=== PATIENT | male | born 1970 | race Caucasian/White ===

== ENCOUNTER 2017-06-20 08:32 | Inpatient (IN) | payer BC, OTHER ==
[~2017-06-20] VITALS: Ht 167.6 cm; Wt 106.6 kg
--- NOTE | 2017-06-20 11:25 | NUR ---
PRE ASSESSMENT: PT IN INTAKE A/O X 4. GIT STEADY. HE IS WEARING A L FOOT BOOT AND HE REPORTS HE STRETCHED LIGAMENTS. HE REPORTS HE IS IN WITHDRAWAL HE USES PAIN PILLS AND HAS NOT USED SINCE 9PM LAST NIGHT. HE REPORTS USING 80- MG PO DAILY FOR THE LAST 4 DAYS AND PRIOR TO THAT 360 MG OF OXYCODONE DAILY AND MORPHINE SULFATE 40 MG PO DAILY X 9 YEARS. HE STATES HE RAN OUT OF MORPHINE AND OXYCODONE ON FRIDAY AND HAS BEEN ON NORCO FOR THE LAST 4 DAYS. HE DENIES SZ HISTORY AND DENIES ALLERGIES. HE REPORTS DJD,CHRONIC BACK PAIN AND HTN. WILL ASSESS PT ON UNIT.
--- NOTE | 2017-06-20 12:00 | NUR ---
ADMISSION: A 46 Y.O MALE A/O X 4 ADMITTED FOR MEDICALLY SUPERVISED WITHDRAWAL OF OPIATES. HE REPORTS TAKING 360 MG PO OF OXYCODONE AND 80 MG PO OF MORPHINE SULFATE DAILY IN THIS PATTERN FOR 2-3 YEARS WITH A 9 YR HISTORY. HE RAN OUT LAST FRIDAY AND HAS BEEN TAKING NORCO 80MG PO DAILY FOR THE LAST 4 DAYS. HE REPORTS DIARRHEA,CHILLS,SWEATS,RESTLESS LEGS,ANXIETY AND RESTLESSNESS COWS 14. HE REPORTS A MEDICAL HX. OF HTN;CHRONIC BACK PAIN AND DJD. HE STATES IS COMPLIANT WITH THE ANTIHYPERTENSIVES THAT HE BROUGHT FROM HOME. HE HAS A L FOOT BOOT.DAIJA ALEXANDER IN [facility] IS HIS PCP.THERE IS 1 + NON PITTING EDEMA NOTED TO L FOOT FOR STRETCHED LIGAMENTS.. HE STATES HE USED HEROIN AND METH IV YEARS AGO BUT QUIT IN 2000 FOR 10 YRS. HE HAD MENISCUS SURGERY 9 YEARS AGO AND STARTED USING THE PAIN PILLS THEN. HE DENIES SEIZURE HX AND ALLERGIES. PT IS GUARDED WITH A DEPRESSED MOOD. HE DENIES S/I AND H/I. PT IS COOPERATIVE. ASSESSED PT AND ORDERED SUBUTEX 4MG SL AT 1230 AND 1400 TO ASSIST IN MANAGING S/S OF W/D. WILL ADMINISTER ORDERED. ORIENTED PT TO STAFF AND UNIT. WILL CONTINUE TO PROVIDE SAFE AND SUPPORTIVE ENVIRONMENT.
[2017-06-20] MEDS ORDERED: ATOR20TA PO (12:16)
[2017-06-20] MEDS ORDERED: VALS1TAB6 PO (12:16)
[2017-06-20] MEDS ORDERED: AMLO10TA4 PO (12:16)
[2017-06-20] MEDS ORDERED: ATEN50TA PO (12:16)
[2017-06-20] MEDS ORDERED: CALC215T PO (12:16)
[2017-06-20 12:43] LABS: BASOPHILS % (AUTO) 0.2 % (0.0-2.0); EOSINOPHILS % (AUTO) 0.1 % (0.0-7.0); HEMOGLOBIN 16.5 g/dL (12.5-16.3); LYMPHOCYTES # (AUTO) 1.1 K/uL (20.0-40.0); LYMPHOCYTES % (AUTO) 10.2 % (20.5-51.5); MEAN CORPUSCULAR HEMOGLOBIN 27.2 uug (23.8-33.4); MEAN CORPUSCULAR HGB CONC 34 g/dL (32.5-36.3); MEAN CORPUSCULAR VOLUME 79.4 fL (73.0-96.2); MONOCYTES # (AUTO) 0.5 K/uL (2.0-10.0); MONOCYTES % (AUTO) 4.7 % (0.0-11.0); NEUTROPHILS # (AUTO) 8.9 K/uL (1.8-8.9); NEUTROPHILS % (AUTO) 84.8 % (38.5-71.5); PLATELET COUNT (AUTO) 388 K/uL (152-348); RED BLOOD CELL COUNT(AUTO) 6.05 MIL/uL (4.06-5.63); WHITE BLOOD COUNT (AUTO) 10.5 K/uL (3.6-10.2)
[2017-06-20 12:53] LABS: ALANINE AMINOTRANSFERASE 26 U/L (16-63); ALKALINE PHOSPHATASE 120 U/L (50-136); ASPARTATE AMINOTRANSFERASE 14 U/L (15-37); BILIRUBIN,TOTAL 0.4 mg/dL (0.2-1.0); CARBON DIOXIDE 32 mmol/L (21-32); CHLORIDE 101 mmol/L (98-107); GLUCOSE 119 mg/dL (74-106); POTASSIUM 3.8 mmol/L (3.5-5.1); TOTAL PROTEIN, SERUM 8.8 g/dL (6.4-8.2); UREA NITROGEN, BLOOD 14 mg/dL (7-18)
[2017-06-20 13:00] LABS: ETHANOL < 3 MG/DL (0-0)
[2017-06-20 13:20] LABS: *AMPHETAMINE, URINE NEGATIVE (NEGATIVE); *BARBITURATE, URINE NEGATIVE (NEGATIVE); *CANNABINOID, URINE NEGATIVE (NEGATIVE); *COCCAINE, URINE NEGATIVE (NEGATIVE); *OPIATE, URINE POSITIVE (NEGATIVE); *PHENCYCLIDINE SCREEN,URINE NEGATIVE (NEGATIVE)
[2017-06-20 16:00] VITALS: BP 90/60
--- NOTE | 2017-06-20 16:30 | NUR ---
PRN MOTRIN 600 MG PO GIVEN FOR REPORTED H/A 04/07 WILL MONITOR EFFECTIVENESS OF PRN.
--- NOTE | 2017-06-20 17:30 | NUR ---
PT REPORTS H/A 11/08 HE STATES THE PRN MOTRIN WAS EFFECTIVE.
--- NOTE | 2017-06-20 18:46 | NUR ---
END OF SHIFT: 46 YO MALE NEWLY ADMITTED FOR OPIATE DEPENDENCE. LAST COWS 10. SUBUTEX TAPER IN PROGRESS TO MANAGE S/S OF W/D. HE STATES THE SUBUTEX IS EFFECTIVE. MOTRIN PRN GIVEN FOR REPORTED H/A AND WAS EFFECTIVE. WILL PASS SHIFT REPORT TO ONCOMING NIGHT NURSE.
--- NOTE | 2017-06-20 19:20 | NUR ---
Start of Shift Patient Received. Patient is in bed, awake, alert and verbally responsive. Breathing even and non labored. No signs of pain or discomfort noted. Patient is a 46 year old male admitted on 06/20/17 for Opiate Dependence under the care of Dr. Sepulveda. Patient is currently receiving a 5 day Subutex taper. Patient verbalizes no known allergies, wishes to be full code, following a regular diet, placed on fall precautions. Skin noted intact. Past medical history noted as HTN, DJD, Chronic back pain, Left foot boot due to right stretched ligaments. Per endorsement, patient was started on Subutex taper medication. Last noted CIWA 10. All needs attended to promptly. Will continue plan of care as ordered.
[2017-06-20 20:31] VITALS: BP 137/92
--- NOTE | 2017-06-20 20:46 | NUR ---
PRN Medication Administration Patient verbalizing increased muscle spasms and increased agitation. COWS 9 and CIWA 10. PRN Ativan 2mg and PRN Robaxin administered as per order. Will continue to monitor.
--- NOTE | 2017-06-20 21:45 | NUR ---
PRN Medication Reassessment Patient is noted in bed, awake, and watching TV. patient is able to verbalize medication was effective in minimizing agitation and muscle spasms. PRN Robaxin and PRN Ativan noted to be effective. All needs attended to promptly. Will continue to monitor.
[2017-06-21] VITALS: BP 124/83
[2017-06-21 04:45] VITALS: BP 120/69
[2017-06-21 06:08] LABS: HEPATITIS B SURFACE AG Negative (Negative)
--- NOTE | 2017-06-21 07:33 | NUR ---
End of Shift Patient is in bed sleeping. Breathing even and non labored. No signs of pain or discomfort noted. Patient is a 46 year old male admitted on 06/20/17 for Opiate Dependence under the care of Dr. Sepulveda and is currently receiving a 5 day Subutex taper. No known allergies, Full code, Regular diet, placed on fall precautions. Skin noted intact. Patient was given PRN Robaxin and Ativan 2mg for increased agitation with medication noted to be effective. Last noted COWS 9. All needs attended to promptly. Will endorse to continue plan of care as ordered.
--- NOTE | 2017-06-21 07:52 | NUR ---
BEGINNING OF SHIFT Patient is a 46 year old male, with admitting Dx: OPIATE Dependence. Patient with past medical history of: HTN, DJD, chronic back pain, history of right knee meniscus surgery, stretched ligaments. Patient received PRN: Robaxin and ativan during tonsorial artist, medication was effective. Patient skin is intact. Per tonsorial artist patient slept for 7 hours, Patient with last cow score of: 9. Patient is scheduled to begin day 2 of 5 day subutex during shift. Patient received in bed awake, alert and oriented x4, educated patient regarding plan of care for the day and medication regimen with good verbal understanding. Safety measures in place. call light kept with in reach, will continue to monitor closely.
[2017-06-21 08:23] VITALS: BP 132/68
--- NOTE | 2017-06-21 09:45 | NUR ---
PRN MOTRIN/ROBAXIN patient c/o generalized body pain 7/10 and muscle aches 7/10, provided with non pharmacological interventions with no relief, administered Motrin and Robaxin as ordered by PO. will monitor effectiveness of medications. safety measures in place. call light kept with in reach.
--- NOTE | 2017-06-21 10:45 | NUR ---
MOTRIN/ROBAXIN REASSESSMENT Patient reports medications effective, reports current pain level is 2/10, tolerable as per patient.
[2017-06-21 13:42] VITALS: BP 146/95
--- NOTE | 2017-06-21 14:33 | NUR ---
PRN TORADOL Patient c/o back pain and left leg pain 8/10, provided with non pharmacological interventions with no relief, patient administered Toradol injection as ordered, injection well tolerated. will monitor effectiveness of medication.
--- NOTE | 2017-06-21 15:33 | NUR ---
TORADOL REASSESSMENT Patient reports medication effective, current pain level 2/10, tolerable as per patient, will continue to monitor.
[2017-06-21 17:23] VITALS: BP 137/80
--- NOTE | 2017-06-21 19:03 | NUR ---
END OF SHIFT Patient alert and oriented x4, patient compliant with therapeutic plan of care. Vital signs were stable during shift. Patient continues on 5 day Subutex taper as ordered and is currently on day 2 of taper, well tolerated, no ASE noted. 0900 assessment presented with: restlessness, c/o chills, mild bone and joint aches, dilated pupils, runny nose, tremors that can be felt but not seen, dilated pupils, runny nose, tremors that can be felt but not seen and mild anxiety with cow score of: 6; 1700 assessment patient presented with: heart rate of 87, c/o chills, dilated pupils, mild bone and joint aches, moist eyes, and mild anxiety with cow score of: 6. Detox medication effective at reducing withdrawal symptom. Patient received PRN Toradol injection, Motrin PO and Robaxin PO as ordered, medications were effective. Patient was encouraged to increase PO fluid intake as tolerated. Patient denies SI/HI. Encouraged to attend group therapies/sessions to learn new coping skills to prevent relapse, MD is aware of patients current status, continues under close observation. Patient endorsed to dairy management specialist nurse, all pertinent information discussed.
--- NOTE | 2017-06-21 19:20 | NUR ---
Start of Shift Patient Received. Patient is in activities room participating in group meeting. Patient is a 46 year old male admitted on 06/20/17 for Opiate Dependence under the care of Dr. Sepulveda and is currently receiving a 5 day Subutex taper. No known allergies, Full code, Regular diet, placed on fall precautions. Skin noted intact. Per endorsement, Patient was given PRN Robaxin, Motrin, and Toradol with medications noted to be effective. Last noted COWS 6. All needs attended to promptly. Will continue plan of care as ordered.
[2017-06-21 21:08] VITALS: BP 145/78
--- NOTE | 2017-06-21 21:15 | NUR ---
PRN Medication Administration Patient verbalizing generalized pain of 8/10 and inability of falling asleep. PRN Toradol and Benadryl administered as per orders. Will continue to monitor.
--- NOTE | 2017-06-21 22:00 | NUR ---
PRN Medication Reassessment Patient was given PRN Toradol for generalized pain and Benadryl for inability of falling asleep. Patient is noted in bed reading a book. Patient is able to verbalizing new tolerable pain level of 4/10. Patient also noted to verbalized "The Benadryl really helped. Im slowly making my way to sleep." PRN medications noted to be effective. Will continue to monitor.
[2017-06-22] VITALS: BP 126/71
--- NOTE | 2017-06-22 | NUR ---
COWS/VS VS REFUSED. COWS ASSESSMENT DEFERRED. RESPIRATION EVEN AND UNLABORED. RR 14. SAFETY MEASURES IN PLACE. CALL LIGHT IN REACH. WILL CONTINUE TO MONITOR. Addendum: 06/23/17 at 0626 by RUBÉN BENAVIDES LVN ERROR IN CHARTING
[2017-06-22 04:20] VITALS: BP 129/73
--- NOTE | 2017-06-22 07:04 | NUR ---
End of Shift Patient is in bed sleeping. Breathing even and non labored. No signs of pain or discomfort noted. Patient is a 46 year old male admitted on 06/20/17 for Opiate Dependence under the care of Dr. Sepulveda and is currently receiving a 5 day Subutex taper. No known allergies, Full code, Regular diet, placed on fall precautions. Skin noted intact. Patient was given PRN Toradol and Benadryl with both medications noted to be effective. Patient slept a total of 6 hours. Last noted COWS 9. All needs attended to promptly. Will endorse to continue plan of care as ordered.
--- NOTE | 2017-06-22 07:30 | NUR ---
Start of shift note; Received report from night nurse. Patient is a 46 year old male admitted on 06/20/17 for Opiate dependence. Patient reported history of hypertension. chronic back pain, history of right knee meniscus surgery. Patient was placed on a 5 day Subutex taper. Patient slept for 6 hours. Patient is on fall and seizure precautions. Bed in lowest position, call light within reach. Will continue to monitor patient.
[2017-06-22 08:00] VITALS: BP 118/88
--- NOTE | 2017-06-22 10:30 | NUR ---
PRN medication; Patient reported right hip/lower back pain rated 9/10. PRN Toradol 30mg IM administered for severe pain. Will continue to monitor patient for effectiveness of medication.
--- NOTE | 2017-06-22 11:00 | NUR ---
PRN medication; Patient requested for Nicotine gum for nicotine craving, given as per Ordered. Addendum: 06/22/17 at 1540 by ROSA COSTELLO LVN Educated patient regarding the importance of not smoking when requesting nicotine gum to prevent nicotine toxicity, patient verbalized understanding.
--- NOTE | 2017-06-22 11:30 | NUR ---
Re-assessment; Patient decrease of pain from 9/10 to 4/10 rated per pain scale, PRN medication is effective.
[2017-06-22 12:00] VITALS: BP 119/78
[2017-06-22 16:00] VITALS: BP 114/61
--- NOTE | 2017-06-22 18:19 | NUR ---
PRN medication; Patient is complaining of heartburn. PRN Maalox given to patient as per MD order. Will continue to monitor for effectiveness of medication.
--- NOTE | 2017-06-22 18:27 | NUR ---
End of shift note; Patient is AOX4. Patient is a 46 year old male admitted on 06/20/17 for Opiate dependence. Patient reported history of hypertension. chronic back pain, history of right knee meniscus surgery. Patient was placed on a 5 day Subutex taper. Patient remained compliant with treatment plan and medication regime. Medications were effective in reducing withdrawal symptoms. Patient participated in group activities and therapies. Met all needs.
--- NOTE | 2017-06-22 19:20 | NUR ---
START OF SHIFT NOTE RECEIVED REPORT FROM DAY SHIFT NURSE. PATIENT IS A 27 YEAR OLD FEMALE ADMITTED FOR OPIATE,BENZO AND METH DEPENDENCE. PATIENT IS ON 1:1 FOR SAFETY AND SEIZURE PRECAUTION. PATIENT IS ALLERGIC TO KEPPRA/LEVETIRACETAM AND BACLOFEN. PATIENT IS ON PHENOBARBITAL TAPER AND SUBUTEX TAPER. PER DAY SHIFT NURSE, PATIENT STILL CONTINUES TO VERBALIZES THAT IF SHE DOES NOT GET MEDICATION THAT SHE FEELS LIKE SEIZURES COMING ON. PATIENT'S CARCAMO WAS REMOVED AND SHE WAS GIVEN PRN CLONIDINE. LAST COWS 7 AND CIWA 6. PATIENT DID NOT HAVE EPISODE OF SEIZURE DURING THE DAY. RECEIVED PATIENT IS IN HER ROOM WITH 1:1. PER PATIENT SHE'S UNABLE TO URINATE. PATIENT NOTED ANXIOUS, AGITATED, RESTLESS, UNSTEADY GAIT, NO N/V, SPEECH IS SLURRED. REDIRECTION PROVIDED. SAFETY MEASURES IN PLACE. CALL LIGHT IN REACH. WILL CONTINUE TO MONITOR. Addendum: 06/23/17 at 0105 by RUBÉN BENAVIDES LVN ERROR: THIS CHARTING IS FOR ANOTHER PATIENT
[2017-06-22 20:00] VITALS: BP 117/71
--- NOTE | 2017-06-22 20:00 | NUR ---
START OF SHIFT NOTE RECEIVED REPORT FROM DAY SHIFT NURSE. PATIENT IS A 46 YEAR OLD MALE ADMITTED FOR OPIATE DEPENDENCE. PATIENT IS ON 5 DAYS SUBUTEX TAPER. PATIENT WAS GIVEN PRN TORADOL IM , MYLANTA AND NICOTINE GUM. PATIENT COMPLIANT WITH MEDICATIONS AND TREATMENT PLAN . LAST COWS 4. REPORTS NO SEIZURE HISTORY. SKIN INTACT. RECEIVED PATIENT ALERT AND ORIENTED X 4. RESPIRATION EVEN AND UNLABORED. PATIENT REPORTS ANXIETY, NOTED WITH FINE TREMORS, NO N/V/D, SWEATING, RUNNY NOSE AND BACK PAIN 6/10. PATIENT STATES HE ATTENDED ALL THE GROUPS, APPETITE IS GOOD AND HAD BM. ON FALL PRECAUTION. SAFETY MEASURES IN PLACE. CALL LIGHT IN REACH. WILL CONTINUE TO MONITOR.
--- NOTE | 2017-06-22 23:54 | NUR ---
PRN BENADRYL ADMINISTRATION PATIENT REQUESTS FOR SLEEP AID. PRN BENADRYL GIVEN. WILL MONITOR FOR EFFECTIVENESS
--- NOTE | 2017-06-23 | NUR ---
COWS/VS VS REFUSED. COWS ASSESSMENT DEFERRED. RESPIRATION EVEN AND UNLABORED. RR 14. SAFETY MEASURES IN PLACE. CALL LIGHT IN REACH. WILL CONTINUE TO MONITOR.
--- NOTE | 2017-06-23 00:54 | NUR ---
STEFANI CASTRO RE-ASSESSMENT PATIENT ASLEEP. RESPIRATION EVEN AND UNLABORED. SAFETY MEASURES IN PLACE. CALL LIGHT IN REACH. WILL CONTINUE TO MONITOR
--- NOTE | 2017-06-23 04:00 | NUR ---
COWS/VS PATIENT SLEEPING. VS REFUSED. COWS ASSESSMENT DEFERRED. RESPIRATION EVEN AND UNLABORED. RR 15. SAFETY MEASURES IN PLACE. CALL LIGHT IN REACH. WILL CONTINUE TO MONITOR.
--- NOTE | 2017-06-23 07:20 | NUR ---
END OF SHIFT NOTE PATIENT IS A 46 YEAR OLD MALE ADMITTED FOR OPIATE DEPENDENCE. PATIENT IS ON 5 DAYS SUBUTEX TAPER, TOLERATED WELL AND NO ADVERSE REACTION. PATIENT COMPLIANT WITH MEDICATIONS AND TREATMENT PLAN . PATIENT STATES MEDICATION IS EFFECTIVE IN CONTROLLING HIS WITHDRAWAL SYMPTOMS. REPORTS NO SEIZURE HISTORY. SKIN INTACT. PATIENT WAS GIVEN PRN BENADRYL FOR SLEEP. ON FALL PRECAUTION. SAFETY MEASURES IN PLACE. CALL LIGHT IN REACH. WILL CONTINUE TO MONITOR. SLEPT 6 HOURS. FLUID INTAKE 1,264 ML. VOIDED X 3 . NO BM. LAST COWS 7 AT 1999.
[2017-06-23 08:00] VITALS: BP 122/71
--- NOTE | 2017-06-23 08:00 | NUR ---
START OF SHIFT NOTE: Received report from night nurse. Patient is a 46 year old male admitted on 06/20/17 for Opiate dependence. Pt is on a 5 day Subutex taper. Tolerating well. Pt is alert and oriented X4. Color good, skin warm and dry. Respirations even and unlabored. Safety precautions observed. Call light within reach. Will continue to monitor.
--- NOTE | 2017-06-23 09:53 | NUR ---
VSS COWS 16 c/o severe body aches, tremors, sweating and anxiety. Dr. Sepulveda notified. Toradol 30 mg IM prn given for muscle aches
--- NOTE | 2017-06-23 11:00 | NUR ---
Pt states body aches improved after Toradol prn. Pain 5/10
--- NOTE | 2017-06-23 11:44 | NUR ---
One time Subutex Administered one time Subutex 2mg per Dr. Sepulveda for COWS 8.
--- NOTE | 2017-06-23 12:12 | NUR ---
Re-assessment Medication was effective, PT COWS 5 at this time
[2017-06-23 13:56] VITALS: BP 117/73
--- NOTE | 2017-06-23 15:00 | NUR ---
VSS COWS 5 c/o anxiety and body aches.
[2017-06-23 17:25] VITALS: BP 117/70
--- NOTE | 2017-06-23 18:43 | NUR ---
END OF SHIFT NOTE: Report given to fish net maker nurse. Patient is a 46 year old male admitted on 06/20/17 for Opiate dependence. Pt is on a 5 day Subutex taper. Tolerating well. Pt is alert and oriented X4. Color good, skin warm and dry. Respirations even and unlabored. Vital signs have remained stable throughout shift. Pt received one time dose of Subutex @ 1144. Safety precautions observed. Call light within reach.
[2017-06-23 20:00] VITALS: BP 111/63
--- NOTE | 2017-06-23 20:00 | NUR ---
START OF SHIFT NOTE RECEIVED REPORT FROM DAY SHIFT NURSE. PATIENT IS A 46 YEAR OLD MALE ADMITTED FOR OPIATE DEPENDENCE. PATIENT IS ON 5 DAY SUBUTEX TAPER, TOLERATED WELL, NO ADVERSE REACTION. PATIENT WAS GIVEN PRN TORADOL . VS STABLE . LAST COWS 5. PATIENT COMPLIANT WITH MEDICATIONS AND TREATMENT PLAN. PATIENT ALERT AND ORIENTED X 4. RESPIRATION EVEN AND UNLABORED. PATIENT REPORTS ANXIETY, SWEATING, CHILLS, NO N/V, MUSCLE ACHES AND STUFFY NOSE. ON FALL PRECAUTION. SAFETY MEASURES IN PLACE. CALL LIGHT IN REACH. WILL CONTINUE TO MONITOR.
--- NOTE | 2017-06-23 21:32 | NUR ---
PRN BENADRYL ADMINISTRATION PATIENT REQUESTS FOR SLEEP AID. PRN BENADRYL GIVEN. WILL MONITOR FOR EFFECTIVENESS
--- NOTE | 2017-06-23 23:00 | NUR ---
STEFANI CASTRO RE-ASSESSMENT PATIENT IN BED ASLEEP. RESPIRATION EVEN AND UNLABORED. SAFETY MEASURES IN PLACE. CALL LIGHT IN REACH. WILL CONTINUE TO MONITOR
[2017-06-24] VITALS: BP 108/66
--- NOTE | 2017-06-24 00:37 | NUR ---
STEFANI CASTRO RE-ASSESSMENT PATIENT ASLEEP AT THIS TIME. RESPIRATION EVEN AND UNLABORED. SAFETY MEASURES IN PLACE. CALL LIGHT IN REACH. WILL CONTINUE TO MONITOR. Addendum: 06/25/17 at 0701 by RUBÉN BENAVIDES LVN ERROR: CHARTING
--- NOTE | 2017-06-24 07:20 | NUR ---
END OF SHIFT NOTE PATIENT IS A 46 YEAR OLD MALE ADMITTED FOR OPIATE DEPENDENCE. PATIENT IS ON 5 DAY SUBUTEX TAPER, TOLERATED WELL, NO ADVERSE REACTION.PATIENT COMPLIANT WITH MEDICATIONS AND TREATMENT PLAN. PATIENT REMAIN ALERT AND ORIENTED X 4. RESPIRATION EVEN AND UNLABORED. ON FALL PRECAUTION. SAFETY MEASURES IN PLACE. CALL LIGHT IN REACH. WILL CONTINUE TO MONITOR. SLEPT 6 HOURS. FLUID INTAKE 350 ML. VOIDED X 1 . BM X 1. LAST COWS 1.
[2017-06-24 08:00] VITALS: BP 125/79
--- NOTE | 2017-06-24 08:07 | NUR ---
START OF SHIFT: RECEIVED PT A/O X 4. HE STATES HE SLEPT OK. PT REPORTS BODY ACHES,STUFFY NOSE,CHILLS AND SWEATS. SUBUTEX TAPER IN PROGRESS. COWS 6. WE DISCUSSED THE CHRONIC PAIN IN HIS HIP AND HE STATES THE NAPROSYN AND BACLOFEN HELPS BUT NOT LIKE THE NARCOTICS HELP HIM.OFFERED SUPPORT. ENCOURAGED HIM TO TALK WITH MD ENCOURAGED GROUP ATTENDANCE TO IMPROVE COPING SKILLS AND PREVENT RELAPSE.WILL CONTINUE TO MONITOR AND OFFER SUPPORT.
[2017-06-24 12:00] VITALS: BP 117/63
[2017-06-24 16:00] VITALS: BP 127/77
--- NOTE | 2017-06-24 18:36 | NUR ---
END OF SHIFT: PT CONTINUES ON SUBUTEX TAPER. LAST COWS 5. HE ATTENDED GROUPS AND INTERACTED WITH PEERS. NO PRNS GIVEN THIS SHIFT. HE C/O BODY ACHES CHILLS,STOMACH CRAMPS AND CHILLS THIS AM BUT S/SO OF W/D LESSENED THE DAY PROGRESSED. HE IS COMPLAINT WITH INCREASED FLUIDS. HE IS COMPLIANT WITH TREATMENT PLAN. WILL PASS SHIFT REPORT TO ONCOMING NIGHT NURSE.
[2017-06-24 20:00] VITALS: BP 143/82
--- NOTE | 2017-06-24 20:00 | NUR ---
START OF SHIFT NOTE RECEIVED REPORT FROM DAY SHIFT NURSE. PATIENT IS A 46 YEAR OLD MALE ADMITTED FOR OPIATE DEPENDENCE. PATIENT IS ON 5 DAY SUBUTEX TAPER. PATIENT COMPLIANT WITH MEDICATION AND TREATMENT PLAN. PATIENT DID NOT REQUIRE ANY PRN MEDICATION. LAST COWS 5. ON FALL PRECAUTION. SCD PUMP AT BEDSIDE, VTE SCORE 2. RECEIVED PATIENT ALERT AND ORIENTED X 4. RESPIRATION EVEN AND UNLABORED. PATIENT REPORTS ANXIETY, SWEATING , TREMORS FELT BUT NOT OBSERVED. DENIES ANY PAIN AT THIS TIME. NO N/V. PATIENT VERBALIZES CONCERN ABOUT HIS D/C AND MEDICATION AFTER DISCHARGE. EXPLAINED TO PATIENT WITHIN NURSING SCOPE AND POSITIVE ENCOURAGEMENT GIVEN. SAFETY MEASURES IN PLACE. CALL LIGHT IN REACH. WILL CONTINUE TO MONITOR.
--- NOTE | 2017-06-24 22:37 | NUR ---
PRN BENADRYL ADMINISTRATION PATIENT REQUESTS FOR SLEEP AID. PRN BENADRYL GIVEN. WILL MONITOR FOR EFFECTIVENESS
[2017-06-25] VITALS: BP 117/66
--- NOTE | 2017-06-25 00:37 | NUR ---
STEFANI CASTRO RE-ASSESSMENT PATIENT ASLEEP AT THIS TIME. RESPIRATION EVEN AND UNLABORED. SAFETY MEASURES IN PLACE. CALL LIGHT IN REACH. WILL CONTINUE TO MONITOR.
--- NOTE | 2017-06-25 04:00 | NUR ---
COWS/VS PATIENT REFUSED VS. COWS UNABLE TO ASSESS. RESPIRATION EVEN AND UNLABORED. SAFETY MEASURES IN PLACE. CALL LIGHT IN REACH. WILL CONTINUE TO MONITOR.
--- NOTE | 2017-06-25 07:25 | NUR ---
END OF SHIFT NOTE PATIENT IS A 46 YEAR OLD MALE ADMITTED FOR OPIATE DEPENDENCE. PATIENT IS ON 5 DAY SUBUTEX TAPER, TOLERATED WELL AND NO ADVERSE REACTION. PATIENT COMPLIANT WITH MEDICATION AND TREATMENT PLAN. MEDICATION ARE EFFECTIVE IN CONTROLLING HIS WITHDRAWAL SYMPTOMS. ON FALL PRECAUTION. SCD PUMP AT BEDSIDE, VTE SCORE 2.PATIENT REQUESTED SLEEP AID AND PRN BENADRYL GIVEN. PATIENT ATTENDED ALL GROUPS AND WITH GOOD APPETITE. SAFETY MEASURES IN PLACE. CALL LIGHT IN REACH. WILL CONTINUE TO MONITOR. SLEPT 6 HOURS. FLUID INTAKE 1,355 ML. VOIDED X 2 . NO BM. LAST COWS 2.
[2017-06-25 08:00] VITALS: BP 128/64
--- NOTE | 2017-06-25 08:00 | NUR ---
START OF SHIFT: RECEIVED PT A/O X 4. HE STATES HE HAD A RESTLESS NIGHT SLEEP AND HAD DIFFICULTY FALLING ASLEEP. PT REPORTS MILD BODY ACHES,STUFFY NOSE AND SWEATS. SUBUTEX TAPER IN PROGRESS. COWS 3. ENCOURAGED ENCOURAGED INCREASED FLUIDS TO ASSIST IN FACILITATING DETOX PROCESS.WILL CONTINUE TO MONITOR AND OFFER SUPPORT.
[2017-06-25 12:00] VITALS: BP 123/76
[2017-06-25] MEDS ORDERED: NICO4GUM38 BC (15:49)
[2017-06-25] MEDS ORDERED: METH28OI2 TOP (15:49)
[2017-06-25] MEDS ORDERED: ACET325T53 PO (15:49)
[2017-06-25] MEDS ORDERED: DIPH50CA37 PO (15:49)
[2017-06-25] MEDS ORDERED: CLON0.1T14 PO (15:49)
[2017-06-25] MEDS ORDERED: DICY20TA28 PO (15:49)
[2017-06-25] MEDS ORDERED: GABA-536 PO (15:49)
[2017-06-25] MEDS ORDERED: NAPR500T3 PO (15:49)
[2017-06-25] MEDS ORDERED: HYDR-3895 PO (15:49)
[2017-06-25] MEDS ORDERED: BACL20TA PO (15:49)
[2017-06-25 16:00] VITALS: BP 123/76
--- NOTE | 2017-06-25 18:58 | NUR ---
END OF SHIFT: PT COMPLETED SUBUTEX TAPER. LAST COWS 5. HE ATTENDED GROUPS AND INTERACTED WITH PEERS. NO PRNS GIVEN THIS SHIFT. HE C/O BODY ACHES AND SOME CHILLS CHILLS TODAY. HE IS COMPLAINT WITH INCREASED FLUIDS. HE IS COMPLIANT WITH TREATMENT PLAN.DISCHARGE PLANNING IN PROGRESS FOR TOMORROW. HE REPORTS ENTHUSIASM TOWARD RECOVERY. WILL PASS SHIFT REPORT TO ONCOMING NIGHT NURSE.
--- NOTE | 2017-06-25 19:15 | NUR ---
START OF SHIFT : PATIENT IS A 46 YEAR OLD MALE ADMITTED FOR OPIATE DEPENDENCE. PATIENT IS ON 5 DAY SUBUTEX TAPER started on 06/21/2017. RECEIVED PATIENT ALERT AND ORIENTED X 4. PATIENT COMPLIANT WITH MEDICATION AND TREATMENT PLAN. LAST COWS 5 at 16:00. ON FALL PRECAUTION. SCD PUMP AT BEDSIDE . RESPIRATION EVEN AND UNLABORED. PATIENT REPORTS ANXIETY, TREMORS FELT BUT NOT OBSERVED. DENIES ANY PAIN AT THIS TIME. NO N/V. PATIENT VERBALIZES CONCERN ABOUT HIS D/C AND MEDICATION AFTER DISCHARGE. Safety measures in place : bed on lowest position with side rails x2 up for safety, call light within reach. Will continue to monitor closely and offer help.
[2017-06-25 20:00] VITALS: BP 123/70
[2017-06-26] VITALS: BP 116/66
[2017-06-26 04:00] VITALS: BP 110/63
--- NOTE | 2017-06-26 04:00 | NUR ---
COWS deferred COWS assessment deferred due to the px is sleeping, to assess if the px is awake per doctor's order. We'll continue to monitor.
--- NOTE | 2017-06-26 07:14 | NUR ---
End of Shift Notes A 46 y/o male admitted for Opiate dependence. During the shift, no complaints made. No SOB noted, respirations are even and unlabored. Px is for D/C today 06/26/2017. Oral intake of 2,300 ml, voided 5x, no BM. Slept for 5 hrs. Safety measures in place, bed on lowest position with side rails x2 up for safety, call light within reach. We'll continue to monitor.
--- NOTE | 2017-06-26 07:15 | NUR ---
Start of Shift Notes: Received patient in his room. Alert and oriented x 4. Verbally responsive. Able to make needs known. Respirations even and unlabored. No SOB noted. Skin warm and dry to touch. Abdomen soft and non-distended with (+) BS in all 4 quadrants. No complains of N/V/D or constipation noted at this time. Bladder non-distended. No complains of dysuria noted. Voids independently. Ambulatory ad cynthia with steady gait. Patient is a 46 year old male admitted for opiate dependence who completed his taper. Patient will be discharging today. Has past medical hx of HTN, DJD, chronic low back pain, right knee meniscal tear. NKA. FULL CODE. Regular diet. On fall precautions. Uses boot to right foot. Educated patient on the discharge process. Patient verbalized good understanding. Will continue to monitor closely.
[2017-06-26 08:00] VITALS: BP 143/88
[2017-06-26 08:25] VITALS: BP 143/88
--- NOTE | 2017-06-26 09:25 | NUR ---
Discharged: Patient education provided regarding patient's discharge. Patient's VS stable. COWS 2 due to anxiety. All discharge paperwork were signed and placed inside blue and black duffel bag. Patient verbalized good understanding of all teachings. Included were patient's home meds and toiletries. Picked up by [facility] to be transported to [facility]. Escorted off the unit by LIE DETECTOR OPERATOR.
== END 2017-06-26 09:25 | disposition other institution (70) | DRG 895 ==
LOC: SRC 11:05
PROVIDERS: ADMIT Internal Medicine; ATTEND Internal Medicine
PROC: HZ2ZZZZ Detoxification Services for Substance Abuse Treatment (ICD-10-PCS; principal; 2017-06-20)
PROC: HZ41ZZZ Group Counseling for Substance Abuse Treatment, Behavioral (ICD-10-PCS; 2017-06-21)
PROC: HZ31ZZZ Individual Counseling for Substance Abuse Treatment, Behavioral (ICD-10-PCS; 2017-06-23)
DX: F11.23 Opioid dependence with withdrawal (principal); I10 Essential (primary) hypertension; F41.9 Anxiety disorder, unspecified; G89.29 Other chronic pain; Z82.49 Family history of ischemic heart disease and other diseases of the circulatory system; Z81.1 Family history of alcohol abuse and dependence; S93.602D Unspecified sprain of left foot, subsequent encounter; X58.XXXD Exposure to other specified factors, subsequent encounter; M25.561 Pain in right knee; F17.220 Nicotine dependence, chewing tobacco, uncomplicated; E78.5 Hyperlipidemia, unspecified; F13.90 Sedative, hypnotic, or anxiolytic use, unspecified, uncomplicated; F15.21 Other stimulant dependence, in remission; D72.823 Leukemoid reaction; Z79.899 Other long term (current) drug therapy
CPT/HCPCS: 36415; 70030-TC; 80307; 80361; 83735; 85025; 86580; 86592; 86705; 86803; 87340; 87806; A4663; G0480; J1885; Q0163